=== PATIENT | male | born 1950 | race Caucasian/White ===

== ENCOUNTER 2023-10-18 07:21 | Emergency (ER) | payer MEDICARE, MEDICAID ==
[~2023-10-18] VITALS: Ht 167.6 cm; Wt 104.0 kg
[2023-10-18 07:28] VITALS: TEMP 98.1; O2SAT 95
[2023-10-18] MEDS ORDERED: BENZONATATE 200MG CAPSULE PO ONE (09:00)
[2023-10-18 11:07] LABS: EOSINOPHILS % 5.3 % (0.0-5.0); HEMATOCRIT. 52.6 % (42.0-52.0); HEMOGLOBIN. 18.1 g/dL (14.0-18.0); LYMPHOCYTES % 21.5 % (20.0-50.0); MEAN CORPUSCULAR HEMOGLOBIN 30.1 pg (28.0-32.0); MEAN CORPUSCULAR HGB CONC 34.3 g/dL (31.0-37.0); MEAN CORPUSCULAR VOLUME 87.7 fL (80.0-94.0); MEAN PLATELET VOLUME 8.3 fl (7.4-10.4); MONOCYTES % 11.7 % (2.0-8.0); NEUTROPHILS % 60.5 % (40.0-76.0); PLATELET 218 x1000/uL (130-400); RED CELL DISTRIBUTION WIDTH 13.3 % (11.6-14.6); WHITE BLOOD COUNT 6.8 x1000/uL (4.5-11.0)
[2023-10-18 11:17] LABS: INR 1.1; PROTHROMBIN TIME 11.3 sec (9.6-11.0)
[2023-10-18 11:24] LABS: ALANINE AMINOTRANSFERASE 10 IU/L (10-49); ALBUMIN 4.2 g/dL (3.2-4.8); ASPARTATE AMINOTRANSFERASE 28 IU/L (<34); CALCIUM 9.3 mg/dL (8.7-10.4); CARBON DIOXIDE 31 mEq/L (21-32); CHLORIDE 100 mEq/L (98-107); CREATININE 0.8 mg/dL (0.6-1.3); GLUCOSE 81 mg/dL (70-105); POTASSIUM 3.7 mEq/L (3.5-5.1); PROTEIN TOTAL 7.7 g/dL (6.0-8.3); SODIUM 137 mEq/L (136-145); TROPONIN I HIGH SENSITIVITY 37 ng/L (3.0-53); UREA NITROGEN BLOOD 8 mg/dL (9-23)
[2023-10-18] MEDS ORDERED: BENZ1LOZ73 MT (11:49)
[2023-10-18 12:30] VITALS: BP 133/74; PULSE 80; RESP 13
== END 2023-10-18 12:51 | disposition home or self-care (01) ==
LOC: ER 07:21
DX: A15.9 Respiratory tuberculosis unspecified (principal); R05.9 Cough, unspecified; M19.90 Unspecified osteoarthritis, unspecified site; K21.9 Gastro-esophageal reflux disease without esophagitis; I10 Essential (primary) hypertension; E78.2 Mixed hyperlipidemia; F19.90 Other psychoactive substance use, unspecified, uncomplicated; Z90.49 Acquired absence of other specified parts of digestive tract; Z20.822 Contact with and (suspected) exposure to COVID-19
CPT/HCPCS: 99285; 71045; 87426; 80053; 83605; 85025; 85610; 87086; 84484; 87804 ×2; 36415; 84145; 93005; C9803